=== PATIENT | male | born 1980 | race Caucasian/White ===

== ENCOUNTER 2023-06-24 11:19 | Emergency (ER) | payer OTHER, SELFPAY ==
[2023-06-24] MEDS ORDERED: Lidocaine 1% w/Epinephrine 1:100K 20 ML VIAL ONE (11:41)
[2023-06-24] MEDS ORDERED: Bupivacaine PF 0.5% 30 ML VIAL ONE (11:41)
== END 2023-06-24 12:45 | disposition home or self-care (01) ==
LOC: MADERS 11:19
DX: S52.502A Unspecified fracture of the lower end of left radius, initial encounter for closed fracture (principal); W22.8XXA Striking against or struck by other objects, initial encounter
CPT/HCPCS: 25600; J0665